=== PATIENT | female | born 1955 | race Caucasian/White ===

== ENCOUNTER → 2017-01-12 | Outpatient (CLI) | payer OTHER ==
[~2017-01-12] VITALS: Ht 162.6 cm; Wt 85.0 kg
[~2017-01-12] MED LIST: INSULIN HUMAN REGULAR 1,000 UNITS/10 ML VIAL SQ PRN; LACTATED RINGER'S 1000 ML INJ 1,000 ML IV ONE; LACTATED RINGER'S 1000 ML IV SCH; METOPROLOL TARTRATE 25 MG TAB PO PRN; OMEP20TA PO; PROPOFOL 200 MG/20 ML AMP IV ONE; SIMETHICONE SUSP DROPS 40 MG/0.6 ML 30 ML BTL ONE; SODIUM CHLORID 0.9% 500 ML IV SCH
[2017-01-12 13:26] VITALS: BP 138/92; PULSE 70; RESP 20; TEMP 97.6; O2SAT 95
[2017-01-12 15:30] VITALS: TEMP 97.7
[2017-01-12 15:50] VITALS: BP 163/88; PULSE 57; RESP 16; O2SAT 95
--- NOTE | 2017-01-13 14:53 | EKG ---
Date Performed: 01/12/2017 Time Performed: 13:34:47 PTAGE: 61 years EKG: Sinus rhythm ST DEVIATION AND MODERATE T-WAVE ABNORMALITY, CONSIDER ANTERIOR ISCHEMIA ABNORMAL ECG NO PREVIOUS TRACING DOCTOR: Catrachita Yeung Interpretating Date/Time 01/13/2017 14:51:46
--- NOTE | 2017-01-15 05:27 | MR ---
cc: DR. BRITTNEY HLELER,FLORIN Callahan M.D. DATE OF : 1955 DATE: 01/12/2017 PROCEDURE: Colonoscopy, with biopsy, snare polypectomy, fulguration of a polyp. INDICATIONS FOR PROCEDURE: The patient is a 61 year-old white female with a history of colon polyps with a family history of colon cancer. She also has central abdominal pain. This procedure is done to evaluate these problems. ENDOSCOPIST: Florin Goff MD ASSISTANTS: Gastrointestinal laboratory personnel. ANESTHESIA: Per FIRE BOSS. TYPE OF INSTRUMENT/SCOPE: Pentax adult colonoscope. TYPE OF PREP: Split GoLytely prep. The preparation was fair to marginal, simethicone was used to break up bubbles especially in the right colon. PHYSICAL EXAM: VITAL SIGNS: Quite stable. She is afebrile. LUNGS: Unremarkable. HEART: No murmurs. ABDOMEN: Soft, nontender. NEUROLOGIC: She is sleepy because of the Diprivan for the upper endoscopy done beforehand. CONTINUOUS MONITORING The patient had routine blood pressure monitoring, pulse oximeter/oxygen, and cardiac monitoring. INFORMED CONSENT: Obtained with full verbal understanding, the indication for procedure (see above), risks and complications (bleeding, perforation, infection, arrhythmias, small possibility of , etc.), benefits (we can potentially see the entire colon, remove lesions, cauterized lesions, biopsy lesions, or inject lesions, etc.), alternatives (BE, flex-sig, surgery, etc.), limitations (we may not see everything secondary to prep and anatomy in addition, the patient understands the concept of a flat adenoma which is usually not seen on a colonoscopy. In other words, the patient understands that most colon cancers occur from colon polyps, however, a handful of colon cancers occur without an apparent colon polyp and occur from a flat adenoma. So, you can have a normal colonoscopy and develop a colon cancer years after the index normal colonoscopy. The patient also understands the inherent miss rate for polyps and a malignancy). The patient also understands the fact that I may not be able to complete the exam in its entirety. All questions were answered and all parties agreed to the procedure. DESCRIPTION OF PROCEDURE: With the patient in the left lateral decubitus position a rectal exam was done. No significant pathology was felt. The colonoscope was inserted and passed through a very redundant and spastic sigmoid colon to the descending colon, through the splenic flexure, through the transverse colon and to the mid ascending colon. Here, there was some paradoxical motion noted and with gentle pressure in the mid abomen, I was able to pass the scope with difficulty into the cecum. Here there were a lot of bubbles noted and I washed this area and eventually I was able to take out much of the liquid stool and bubbles. No cecal valve was noted. It was unremarkable. I could not see the ileocecal valve. As the scope was withdrawn back the preparation was fair to marginal. In the cecum there was a 4 millimeter flat polyp. It was cold biopsied and removed. There were also four 2 millimeter sessile polyps, also cold biopsied and removed. In the mid ascending colon, there was a medium size lipoma which was left alone. Also in the mid ascending colon, there were three 3 millimeter sessile polyps which were cold biopsied and removed. In the mid transverse colon there was a 3 millimeter sessile polyp and a 2 millimeter sessile polyp, both cold biopsied and removed. In the mid descending colon, there was a 5 millimeter sessile polyp which was cold snared and completely removed and retrieved. Also in the mid descending colon, there is a 1 cm sessile polyp. It was hot snared and removed. This polyp was cut in half and then suctioned and retrieved. Next there a 3 millimeter sessile polyp which was fulgurated with the snare tip. There was mild descending sigmoid diverticulosis without diverticulitis. Retroflexion was accomplished. The rectum, internal hemorrhoids had no bleeding. Throughout the exam there were no masses, AVMs, diverticulitis or signs of any inflammatory bowel disease. SPECIMEN Cecal polyp, ascending colon polyp, transverse colon polyp, and descending colon polyp. TOLERANCE OF PROCEDURE: The scope was totally withdrawn. The patient tolerated the procedure quite well. No immediate complications. Lungs, heart, abdomen, vital signs and the rest of the physical exam quite stable post procedure. The patient was transported in a stable state to the recovery area. IMPRESSION: 1. Multiple colon polyps highlighted above. 2. Mild descending sigmoid diverticulosis. 3. Internal hemorrhoids. PLAN: 1. Post procedure protocol is followed. 2. Resume home meds. 3. The patient may be discharged when anesthesia protocol is met. 4. Patient was encouraged to have a full liquid diet for the next 24 hours and then resume her normal diet. 5. She is encouraged to call the office in 7 to 10 business days for the results of the biopsy. 6. Further recommendations depending on what the biopsy shows. MD PEDRITO Vyas/BRAD /3:44 PM /4:57 AM
--- NOTE | 2017-01-16 11:29 | MR ---
cc: BRITTNEY REEVES MD, SUNIL P. MD TREECE,NETTA Fofana MD DATE 01/12/17 DATE OF 51 EGD WITH BIOPSY INDICATIONS FOR PROCEDURE The patient is a pleasant 60 year old white female history of gastroesophageal reflux disease and central abdominal pain. This procedure is being done to evaluate the source of his problems. biopsy ENDOSCOPIST: Florin Goff MD ASSISTANTS: Gastrointestinal laboratory personnel. SCOPE: Adult Pantex video gastroscope ANESTHESIA: Diprivan per DOUGH [employer]ER INTRAVENOUS MEDICATION: See above. PHYSICAL EXAM: Vital signs are stable. She is afebrile. Lungs unremarkable. Heart has no murmurs. Abdomen soft, nontender. She is alert and oriented times three. Her skin was warm and moist. CONTINUOUS MONITORING: The patient had routine blood pressure monitoring, pulse oximeter/oxygen, and cardiac monitoring. INFORMED CONSENT: Obtained with full verbal understanding, the indication for procedure (see above), risks and complications (bleeding, perforation, infection, arrhythmias, mediastinitis, small possibility of , etc.), limitations (we may not see everything due to prep and anatomy especially if there is a lot of blood in the stomach or food is there, etc.), alternatives (upper GI, small bowel follow through, surgery, etc.), benefits (we can potentially see the entire esophagus, stomach, and part of the duodenum, and biopsy, cauterize, inject or dilate various lesions or abnormalities if needed, etc.) All questions were answered, all parties agreed to the procedure. DESCRIPTION OF PROCEDURE: The patient was placed in the left lateral decubitus position. The above noted sedation was given in very slow incremental doses. Once an optimal level of sedation was achieved, then the above mentioned gastroscope was inserted and passed into the hypopharyngeal area, esophagus which was inspected in its entire length, through the stomach, which was seen in straight view, as well as retroflex view, and the gastric pool was suctioned. The stomach was fully insufflated. The pylorus was entered and the scope passed through the duodenal bulb, second and third portion. All air and secretion were suctioned prior to removal of the scope. FINDINGS: 1. Esophagus: The gastroesophageal junction was located at approximately 40 cm. The GE junction was irregular and biopsies were taken showed segment Hogan's. Post biopsy it was noted area was quite friable but bleeding was observed to cease. There was no hiatal hernia, esophageal varices or leeann esophagitis seen. 2. Stomach: The stomach was seen on straight view as well as retroflex view. There was mild amount of bile in dependent areas which was suctioned. Once this was suctioned, there was noted there was some erythema involving the body of the stomach and biopsies taken there as well as the antrum, fundus and angularis check for H-pylori. The scope was seen in straight view, was retroflexed view it did extend quite fully. There was no masses, polypoid lesions,, gastroesophageal varices, ulcers or erosions seen. 3. Duodenum: Pylorus was patent. Duodenal bulb second and third portion grossly unremarkable. SPECIMEN: GE junction and stomach. TOLERANCE OF PROCEDURE: The scope was totally withdrawn and the patient tolerated the procedure quite well. No immediate complications. Lungs, heart, vital signs and the rest of the physical exam is unchanged post procedure. ASSESSMENT 1. Gastroesophageal reflux disease 2. Central abdominal pain, 3. Mild esophagitis, 4. Mild gastritis with bile staining of the stomach. RECOMMENDATIONS 1. Await pathology. 2. Proceed with colonoscopy today. MD PEDRITO Vyas/ /3:39 PM /11:20 AM MTDD
== END ==
LOC: HEND 12:48
PROVIDERS: ATTEND Internal Medicine Gastroenterology
DX: Z12.11 Encounter for screening for malignant neoplasm of colon (principal); Z80.0 Family history of malignant neoplasm of digestive organs; Z86.010 Personal history of colon polyps; D12.0 Benign neoplasm of cecum; D12.3 Benign neoplasm of transverse colon; D12.2 Benign neoplasm of ascending colon; D17.79 Benign lipomatous neoplasm of other sites; K64.8 Other hemorrhoids; K57.30 Diverticulosis of large intestine without perforation or abscess without bleeding; K21.0 Gastro-esophageal reflux disease with esophagitis; K29.50 Unspecified chronic gastritis without bleeding; R10.13 Epigastric pain; R94.31 Abnormal electrocardiogram [ECG] [EKG]
CPT/HCPCS: 00810; 43239; 45380; 45385; 88305; 88312; 93005; J7120

== ENCOUNTER → 2017-01-27 | Outpatient (CLI) | payer OTHER ==
[~2017-01-27] MED LIST changes: -INSULIN HUMAN REGULAR 1,000 UNITS/10 ML VIAL SQ PRN; +IOHEXOL 350 MG/ML 10 ML VIAL (for RAD DIAG) IV ONE; -LACTATED RINGER'S 1000 ML INJ 1,000 ML IV ONE; -LACTATED RINGER'S 1000 ML IV SCH; -METOPROLOL TARTRATE 25 MG TAB PO PRN; -PROPOFOL 200 MG/20 ML AMP IV ONE; -SIMETHICONE SUSP DROPS 40 MG/0.6 ML 30 ML BTL ONE; -SODIUM CHLORID 0.9% 500 ML IV SCH
--- NOTE | 2017-01-27 15:42 | RADRPT ---
EXAM DATE/TIME: 01/27/2017 14:26 [facility] COMPARISON: No previous studies available for comparison. INDICATIONS : Periumbilical pain. IV CONTRAST: 93 cc Omnipaque 350 (iohexol) IV ORAL CONTRAST: Prescribed oral contrast ingested. RADIATION DOSE: 15.62 CTDIvol (mGy) MEDICAL HISTORY : Gastroesophageal reflux disease. SURGICAL HISTORY : Cholecystectomy. Hysterectomy. ENCOUNTER: Initial ACUITY: 1 day PAIN SCALE: 4/10 LOCATION: Bilateral upper quadrant TECHNIQUE: Volumetric scanning of the abdomen and pelvis was performed. Using automated exposure control and ad justment of the mA and/or kV according to patient size, radiation dose was kept as low as reasonably achievable to obtain optimal diagnostic quality images. FINDINGS: Examination of the lung bases demonstrates no abnormality. No pleural fluid is identified. No pulmona ry nodules are present. There is a tiny indeterminate hypodensity in segment 7 measuring less than 10 mm. The gallbladder is absent. The pancreas demonstrates normal contour without evidence of mass or ductal dilatation. The adrenal glands and kidneys appear normal bilaterally. No hydronephrosis or mas s lesions are identified. Examination of the right lower quadrant demonstrates no abnormality. The ap pendix is identified and appears normal. Examination of the pelvis demonstrates no evidence of free fluid or pelvic mass. No abnormally enlarg ed inguinal or retroperitoneal lymph nodes are present. The bladder is unremarkable. There is diverti culosis without evidence of diverticulitis. CONCLUSION: 1. No evidence of acute abdominal or pelvic process. No masses are identified. 2. Diverticulosis without evidence of diverticulitis. Tony Mcfarland MD on January 27, 2017 at 15:03 Board Certified Radiologist. This report was verified electronically.
== END ==
LOC: HRAD 12:44
DX: R10.33 Periumbilical pain (principal)
CPT/HCPCS: 74177; Q9967